=== PATIENT | male | born 1970 | race Caucasian/White ===

== ENCOUNTER 2017-08-03 18:20 | Emergency (ER) | payer BC ==
--- NOTE | 2017-08-03 23:43 | RAD ---
LEFT RIBS WITH PA CHEST 08/03/17 Fractures of at least the left 8th and 9th ribs posteriorly are noted with some displacement. There i s no sign of pneumothorax or large pleural effusion. The lungs are clear. The heart is normal in size and the mediastinum shows no widening or shift. IMPRESSION: Fractures of the left 8th and 9th ribs posterolaterally. POS: HOME
== END 2017-08-03 19:25 | disposition home or self-care (01) ==
LOC: BURERS 18:20
DX: S22.42XA Multiple fractures of ribs, left side, initial encounter for closed fracture (principal); V80.919A Animal-rider injured in unspecified transport accident, initial encounter
CPT/HCPCS: 99283

== ENCOUNTER 2017-09-10 09:14 | Emergency (ER) | payer BC | END 2017-09-10 09:41 | disposition home or self-care (01) | LOC: BURERS 09:14 | DX: K04.7 Periapical abscess without sinus (principal); F41.9 Anxiety disorder, unspecified; Z79.899 Other long term (current) drug therapy | CPT/HCPCS: 64400; J2001 ==

== ENCOUNTER 2017-10-28 14:06 | Emergency (ER) | payer BC | END 2017-10-28 14:23 | disposition home or self-care (01) | LOC: BURERS 14:06 | DX: S16.1XXA Strain of muscle, fascia and tendon at neck level, initial encounter (principal); Z79.899 Other long term (current) drug therapy; V43.52XA Car driver injured in collision with other type car in traffic accident, initial encounter | CPT/HCPCS: 99283 ==

== ENCOUNTER 2020-07-02 13:13 | Emergency (ER) | payer BC ==
--- NOTE | 2020-07-02 16:35 | RAD ---
PORTABLE CHEST: 07/02/20 Comparison is made with the prior study dated 08/03/15. There has been no adverse interval change. Th e heart is normal in size. There is no vascular congestion, edema, or pleural effusion. The mediastin um shows no widening or shift. IMPRESSION: No acute thoracic finding. POS: HOME
[2020-07-02 23:11] LABS: SARS-CoV-2 MS2 Positive; SARS-CoV-2 N Gene Positive; SARS-CoV-2 S Gene Positive; SARS-CoV-2 by NAA DETECTED (NotDetected); SARS-CoV-2 orf1ab Positive
== END 2020-07-02 15:42 | disposition home or self-care (01) ==
LOC: BURERS 13:13
DX: U07.1 COVID-19 (principal)
CPT/HCPCS: 71045; 87635; 87804; U0003

== ENCOUNTER 2020-08-25 09:36 | Emergency (ER) | payer BC, OTHER | END 2020-08-25 10:20 | disposition home or self-care (01) | LOC: BURERS 09:36 | DX: S63.502A Unspecified sprain of left wrist, initial encounter (principal); W18.30XA Fall on same level, unspecified, initial encounter ==

== ENCOUNTER 2021-01-18 14:11 | Emergency (ER) | payer BC ==
[2021-01-18 15:51] LABS: #Basophils 0.1 thou/uL (0.0-0.2); #Lymphocytes 0.5 thou/uL (1.20-3.40); #Monocytes 0.6 thou/uL (0.11-0.59); #Neutrophils 8.7 thou/uL (1.40-6.50); %Lymphocytes 4.8 % (21.0-51.0); %Monocytes 5.9 % (0.0-10.0); %Neutrophils 88.3 % (42.0-75.0); Mean Corpuscular HGB CONC 33.4 g/dL (32.0-36.0); Mean Corpuscular Hemoglobin 30.1 pg (27.0-31.0); Mean Platelet Volume 9.1 fL (7.4-10.4); Platelet Count 159 thou/uL (130-400); RBC Distribution Width 12.1 % (11.5-14.5); Red Blood Cell (RBC) Count 4.31 mill/uL (4.70-6.10); White Blood Cell (WBC) Count 9.9 thou/uL (4.8-10.8)
[2021-01-18 16:05] LABS: ALT (SGPT) 11 U/L (8-55); AST (SGOT) 13 U/L (5-34); Albumin 3.6 g/dL (3.5-5.0); Alkaline Phosphatase 66 U/L (40-110); Anion Gap 14 mmol/L (10-20); BUN (Urea Nitrogen) 16 mg/dL (8.9-20.6); Bilirubin, Total 1.7 mg/dL (0.2-1.2); Calc. Creatinine Clearance 0 mL/min (70-130); Calcium 8.9 mg/dL (7.8-10.44); Carbon Dioxide 31 mmol/L (22-29); Chloride 98 mmol/L (98-107); Glucose 131 mg/dL (70-105); Protein, Total 6.6 g/dL (6.0-8.3); Sodium 139 mmol/L (136-145)
[2021-01-18] MEDS ORDERED: Amoxicillin/Potassium Clav 875 MG TAB ONE (16:51)
[2021-01-18] MEDS ORDERED: Azithromycin 250 MG TAB ONE (16:51)
[2021-01-19 12:51] LABS: SARS-CoV-2 PCR by NAA Not Detected (NotDetected)
== END 2021-01-18 17:00 | disposition home or self-care (01) ==
LOC: BURERS 14:11
DX: J18.9 Pneumonia, unspecified organism (principal); Z20.822 Contact with and (suspected) exposure to COVID-19
CPT/HCPCS: 36415; 71045; 80053; 85025; 87804; U0003; U0005

== ENCOUNTER 2022-08-09 15:12 | Emergency (ER) | payer BC | END 2022-08-09 16:49 | disposition home or self-care (01) | LOC: BURERS 15:12 | DX: S93.402A Sprain of unspecified ligament of left ankle, initial encounter (principal); X50.1XXA Overexertion from prolonged static or awkward postures, initial encounter ==

== ENCOUNTER 2025-07-09 22:44 | Emergency (ER) | payer OTHER, SELFPAY ==
[2025-07-09] MEDS ORDERED: HYDROcodone/Acetaminophen 10/325 mg Tablet ONE (23:09)
== END 2025-07-10 00:16 | disposition home or self-care (01) ==
LOC: BURERS 22:44
DX: Z48.00 Encounter for change or removal of nonsurgical wound dressing (principal); T24.302D Burn of third degree of unspecified site of left lower limb, except ankle and foot, subsequent encounter
CPT/HCPCS: 99283